=== PATIENT | female | born 1940 | race Caucasian/White ===

== ENCOUNTER 2020-06-11 09:32 | Outpatient (REF) | payer OTHER, SELFPAY ==
--- NOTE | 2020-06-11 08:55 | SKI_PTH ---
PATIENT: Roula Giraldo LOC: N U#:[id number] AGE/SX: 80/F ROOM: RE06/11/[address]: AFUA Wisdom : 1940 BED: DIS: 06/11/2020 SPEC #: [id number] RECD: 06/11/20 17:26 STATUS: CIRILO REQ #: [id number] SRINATH: 06/11/20 08:[address]: Oswaldo Weber DEPT: Surgical Specimen RECD BY: Dory So ENTERED: 06/11/20 17:26 SP TYPE: [facility] DR: Karel Wright MD Tissues: 1 - SKIN BIOPSY(SHAVE/PUNCH) Procedures: SKIN LEVEL 4 Comments: [id number]
== END 2020-06-11 09:33 | disposition home or self-care (01) ==
LOC: LBN 09:32
PROVIDERS: PCP Family Medicine; Visit Provider Physician Assistant
DX: C44.329 Squamous cell carcinoma of skin of other parts of face (principal)
CPT/HCPCS: 88305

== ENCOUNTER 2021-01-06 10:17 | Outpatient (REF) | payer MEDICARE, SELFPAY ==
[2021-01-06 20:41] LABS: Abs Immature Grans 0.03 10^3/uL (0.0-0.06); Absolute Eosinophil Count 0.25 10^3/uL (0.0-0.7); Absolute Lymphocyte Count 2.06 10^3/uL (1.2-3.4); Absolute Monocyte Count 0.56 10^3/uL (0.1-0.8); Absolute Neutrophil Count 8.26 10^3/uL (1.2-6.7); Basophils % 0.4; Eosinophils % 2.2; HCT 41.3 % (36.0-46.0); HGB 13.3 g/dL (11.2-15.7); Immature Grans % 0.3; Lymphocytes % 18.4; MCH 29.3 pg (27.0-33.0); MCHC 32.2 % (32.0-36.0); MPV 10.2 fL (8.0-11.0); Neutrophils % 73.7; Nucleated RBC 0 %; Platelet Count 209 10^3/uL (130-400); RBC 4.54 10^6/uL (3.93-5.22); RDW 11.9 % (11.7-14.6); RDW-SD 40.2 fL; WBC 11.21 10^3/uL (4.4-10.8)
[2021-01-06 20:42] LABS: Absolute Basophil Count 0.04 10^3/uL (0.0-0.2)
[2021-01-06 21:12] LABS: ALT 14 U/L (14-59); AST 15 U/L (15-37); Albumin 3.9 g/dL (3.4-5.0); Alkaline Phosphatase 90 U/L (46-116); Anion Gap 11.2 mmol/L (3-11); BUN 16 mg/dL (7-18); Bilirubin, Total 0.3 mg/dL (0.2-1.0); CO2 23.8 mmol/L (21.0-32.0); CREATININE 0.7 mg/dL (0.55-1.02); Calcium 9.1 mg/dL (8.5-10.1); Calculated LDL 167 mg/dL (<100); Chloride 103 mmol/L (98-107); Cholesterol 278 mg/dL (<200); Glucose 99 mg/dL (74-106); HDL Cholesterol 76 mg/dL (40-60); Potassium 4.5 mmol/L (3.5-5.1); Sodium 138 mmol/L (136-145); TSH 2.96 uIU/mL (0.36-3.74); Total Protein 7.5 g/dL (6.4-8.2); Triglyceride 176 mg/dL (<150)
== END 2021-01-06 10:18 | disposition home or self-care (01) ==
LOC: NCHCN 10:17
PROVIDERS: Visit Provider Nurse Practitioner Family
DX: I10 Essential (primary) hypertension (principal); R55 Syncope and collapse
CPT/HCPCS: 80053; 80061; 84443; 85025

== ENCOUNTER 2021-09-30 11:01 | Outpatient (REF) | payer BC, SELFPAY ==
[2021-09-30 20:40] LABS: ALT 15 U/L (14-59); AST 17 U/L (15-37); Albumin 3.9 g/dL (3.4-5.0); Alkaline Phosphatase 73 U/L (46-116); Anion Gap 7.5 mmol/L (3-11); BUN 15 mg/dL (7-18); Bilirubin, Total 0.3 mg/dL (0.2-1.0); CO2 27.5 mmol/L (21.0-32.0); CREATININE 0.8 mg/dL (0.55-1.02); Calcium 9.1 mg/dL (8.5-10.1); Calculated LDL 175 mg/dL (<100); Chloride 101 mmol/L (98-107); Cholesterol 288 mg/dL (<200); Glucose 109 mg/dL (74-106); HDL Cholesterol 84 mg/dL (40-60); Potassium 4.8 mmol/L (3.5-5.1); Sodium 136 mmol/L (136-145); Total Protein 7.7 g/dL (6.4-8.2); Triglyceride 149 mg/dL (<150)
== END 2021-09-30 11:02 | disposition home or self-care (01) ==
LOC: NCHCN 11:01
PROVIDERS: Visit Provider Nurse Practitioner Family
DX: Z00.00 Encounter for general adult medical examination without abnormal findings (principal)
CPT/HCPCS: 80053; 80061

== ENCOUNTER 2023-04-20 13:00 | Outpatient (REF) | payer OTHER, SELFPAY ==
[2023-04-20 20:18] LABS: Anion Gap 9.8 mmol/L (3-11); BUN 14 mg/dL (7-18); CO2 27.2 mmol/L (21.0-32.0); CREATININE 0.8 mg/dL (0.55-1.02); Calcium 9.4 mg/dL (8.5-10.1); Chloride 104 mmol/L (98-107); Estimated GFR 72.61 (mL/min/1.73m2); Glucose 106 mg/dL (74-106); Potassium 4.8 mmol/L (3.5-5.1); Sodium 141 mmol/L (136-145)
== END 2023-04-20 13:01 | disposition home or self-care (01) ==
LOC: NCHCN 13:00
PROVIDERS: Visit Provider Nurse Practitioner Family
DX: I10 Essential (primary) hypertension (principal)
CPT/HCPCS: 80048

== ENCOUNTER 2024-04-09 19:47 | Outpatient (REF) | payer MEDICARE, SELFPAY ==
[2024-04-09 19:08] LABS: HCT 43.2 % (36.0-46.0); HGB 13.7 g/dL (11.2-15.7); MCHC 31.7 % (32.0-36.0); MCV 95 fL (80-95); MPV 9.4 fL (8.0-11.0); Platelet Count 250 10^3/uL (130-400); RBC 4.56 10^6/uL (3.93-5.22); RDW 12.8 % (11.7-14.6); WBC 10.79 10^3/uL (4.4-10.8)
[2024-04-09 19:45] LABS: ALT 14 U/L (14-59); AST 16 U/L (15-37); Albumin 3.7 g/dL (3.4-5.0); Alkaline Phosphatase 74 U/L (46-116); Anion Gap 7.5 mmol/L (3-11); BUN 16 mg/dL (7-18); Bilirubin, Total 0.33 mg/dL (0.2-1.0); CO2 27.5 mmol/L (21.0-32.0); CREATININE 0.8 mg/dL (0.55-1.02); Calcium 9.1 mg/dL (8.5-10.1); Chloride 106 mmol/L (98-107); Estimated GFR 72.16 (mL/min/1.73m2); Glucose 133 mg/dL (74-106); Potassium 4.7 mmol/L (3.5-5.1); Sodium 141 mmol/L (136-145); Total Protein 7.7 g/dL (6.4-8.2); Vitamin B12 1408 pg/mL (193-986)
== END 2024-04-09 19:48 | disposition home or self-care (01) ==
LOC: NCHCN 19:47
PROVIDERS: PCP Internal Medicine; Visit Provider Internal Medicine
DX: G30.9 Alzheimer's disease, unspecified (principal); R63.4 Abnormal weight loss
CPT/HCPCS: 80053; 85027; 82607; 84443